=== PATIENT | female | born 1985 | race Caucasian/White ===

== ENCOUNTER 2022-05-26 06:15 | Day surgery (SDC) | payer OTHER ==
[~2022-05-26] VITALS: Ht 170.2 cm; Wt 125.0 kg
[~2022-05-26 06:15] MED LIST: NEURONTIN600 MG PO; SERTRALINE HCL200 MG PO; TRAZODONE HCL100 MG PO
[2022-05-26] MEDS ORDERED: BENADRYL25 MG PO ×2 (06:46)
--- NOTE | 2022-05-26 09:29 | NUR ---
PATIENT REMOVED HER NOSE PIERCING AND PLACED IT IN A STERILE MED CUP WITH A LID AND HANDED IT TO HER FRIEND TO PUT IN HER BELONGINGS BAG.
--- NOTE | 2022-05-26 12:22 | NUR ---
05/26/22 1222 Cassie Cedillo 1142 PT ARRIVED TO PACU, PT COUGHING AND DECREASED O2 NOTED. PT MOVED UP IN BED AND HOB INCREASED. PT GRABBING AT FACE. 1143 10L O2 PLACED, DEEP BREATHING ENCOURAGED. RN REORIENTING PT TO PACU. 1145 PT ASLEEP AND SNORING NOTED. O2 MID TO HIGH 90S. 1157 O2 REMOVED. PT CONTINUES TO COUGH OFF AND ON. O2 REMOVED. 1201 O2 2L NC PLACED. EDUCATION GIVEN ON SMOKING AND COUGHING. O2 INCREASED TO LOW 90S. 1216 PT RESTING IN BED AND GLASSES IN PLACE PER REQUEST. PT SIPPING WATER AND DENIES CONCERNS. PT REPORTS HER THROAT HURTS AND EDUCATION GIVEN. COUGHING OFF AND ON NOTED. BILATERAL LUNG SOUNDS CLEAR. 1222 PT ASLEEP OFF AND ON.
--- NOTE | 2022-05-26 14:03 | NUR ---
1345-PATIENT BACK TO ROOM FROM PACU ON RA. RECEIVED REPORT FROM FLORIDA SMITH. PATIENT IS DROWSY. RESP EVEN AND UNLABORED. PATIENT IS COUGHING ON OCCASION. ENCOURAGED PATIENT TO CONTINUE COUGHING AND DEEP BREATHING. PATIENT CURRENTLY ON PHONE AND TALING TO FRIEND IN ROOM. O2 SATS FROM 91%-96% ON RA. PATIENT REPORTS HER MOUTH IS NUMB. CALL LIGHT WITHIN REACH. 1355-PATIENT IS LAYING IN BED TALKING ON PHONE. PROVIDED PATIENT WITH APPLESAUSE, PUDDING, AND WATER. PATIENT CONTINUES TO HAVE OCCASIONAL COUGHING. O2 SATS AROUND 95% ON RA. CALL LIGHT WITHIN REACH.
--- NOTE | 2022-05-26 14:30 | NUR ---
[id number] UP TO BESIDE COMMODE. PATIENT VOIDED 250ML OF YELLOW URINE. [id number] BACK TO BED. CALL LIGHT WITHIN REACH.
--- NOTE | 2022-05-26 14:31 | NUR ---
1430-PATIENT LAYING IN BED AWAKE. PATIENT IS COUGHING OCCASIONALLY. ENCOURAGED PATIENT TO TAKE DEEP BREATHS AND COUGH. O2 SATS 92-95% ON RA. EXPLAINED TO PATIENT TO USE HER CALL LIGHT IF SHE WOULD LIKE TO SLEEP SO WE COULD PUT ON HER CPAP. PATIENT VERBALIZRD UNDERSTANDING.
--- NOTE | 2022-05-26 14:51 | NUR ---
PATIENT LAYING AWAKE IN BED. PATIENT IS ON HER PHONE. RESP EVEN AND UNLABORED. PATIENT DENIES DENTAL PAIN, STATES HER MOUTH IS NUMB. STATES HAS A HEADACHE AND A SORE THROAT. PATIENT IS COUGHING. O2 SATS IN THE MID 90'S ON RA. PATIENT IS ENCOURAGED TO TAKE SIPS OF WATER. CALL LIGHT WITHIN REACH.
--- NOTE | 2022-05-26 15:12 | NUR ---
1500-PATIENT ASKING FOR HER CPAP. CPAP RUNNING. O2 SATS IN THE UPPER 90'S ON RA. 1510-PATIENT'S O2 SATS CONTINUE TO BE IN THE UPPER 90'S ON RA. PATIENT IS READY TO GO HOME.
--- NOTE | 2022-05-26 15:27 | NUR ---
1525-PROVIDED PATIENT WITH DISCHARGE INSTRUCTIONS. ENCOURAGED PATIENT TO USE HER CPAP NIGHTLY. ENCOURGAED COUGH AND DEEP BREATHING AND IF SOB SHOULD GO TO ER. PATIENT VERBALIZED UNDERSTANDING. PATIENT AMBULATES TO WHEELCHAIR. RIDE PROVIDED TO [facility] WHERE FRIEND WAS WAITING WTIH THE CAR.
== END 2022-05-26 15:25 | disposition home or self-care (01) ==
LOC: DS 06:15 → OPS 06:15 → DS 09:00 → OPS 09:00
PROVIDERS: ATTEND Dentist General Practice
PROC: 0CRWXJ1 Replacement of Upper Tooth, Multiple, with Synthetic Substitute, External Approach (ICD-10-PCS; 2022-05-26)
PROC: 0CRXXJ1 Replacement of Lower Tooth, Multiple, with Synthetic Substitute, External Approach (ICD-10-PCS; principal; 2022-05-26 09:00)
DX: K04.7 Periapical abscess without sinus (principal); K02.9 Dental caries, unspecified; J45.909 Unspecified asthma, uncomplicated; E66.9 Obesity, unspecified; Z20.822 Contact with and (suspected) exposure to COVID-19; Z91.040 Latex allergy status; Z88.8 Allergy status to other drugs, medicaments and biological substances; Z68.41 Body mass index [BMI] 40.0-44.9, adult
CPT/HCPCS: 71045; 84703; 87502; C9803; J0330; J1100; J1200; J1885; J2001; J2250; J2405; J2704; J7121; U0003